=== PATIENT | female | born 1985 | race Two or more races ===

== ENCOUNTER 2019-11-22 14:45 | Emergency (ER) | payer SELFPAY ==
[~2019-11-22] VITALS: Ht 157.5 cm; Wt 113.4 kg
[2019-11-22 14:58] VITALS: BP 143/95
[2019-11-22] MEDS ORDERED: ACETAMINOPHEN/CODEINE#3 (300/30mg) TAB PO ONE (17:30)
== END 2019-11-22 18:41 | disposition home or self-care (01) ==
LOC: EDBD 14:45 → ER 14:45
DX: S82.831A Other fracture of upper and lower end of right fibula, initial encounter for closed fracture (principal); W01.0XXA Fall on same level from slipping, tripping and stumbling without subsequent striking against object, initial encounter; Y93.89 Activity, other specified; Y92.89 Other specified places as the place of occurrence of the external cause; Y99.8 Other external cause status
CPT/HCPCS: 29515; 73610